=== PATIENT | female | born 1970 | race Caucasian/White ===

== ENCOUNTER 2020-11-06 12:19 | Emergency (ER) | payer MEDICAID ==
[~2020-11-06] VITALS: Ht 167.6 cm; Wt 95.5 kg
[2020-11-06 12:53] LABS: CLARITY URINE TURBID (CLEAR); COLOR URINE ORANGE (YELLOW); KETONES URINE NEGATIVE (NEGATIVE); LEUKOCYTE ESTERASE URINE 1+ (NEGATIVE); NITRITE URINE NEGATIVE (NEGATIVE); OCCULT BLOOD URINE 3+ (NEGATIVE); PH URINE >=9.0 (4.5-8.0); PROTEIN URINE 1+ (NEGATIVE); SPECIFIC GRAVITY URINE 1.022 (1.005-1.030)
[2020-11-06] MEDS ORDERED: PYR200 PO (13:36)
[2020-11-06] MEDS ORDERED: ACET-2708 PO (13:36)
[2020-11-06] MEDS ORDERED: SULF1TAB48 PO (13:36)
[2020-11-06 13:54] VITALS: BP 112/77
== END 2020-11-06 14:14 | disposition home or self-care (01) ==
LOC: ER 12:19 → EDSEX 12:19 → ER 14:14
DX: N39.0 Urinary tract infection, site not specified (principal)
CPT/HCPCS: 81003; 81025; 99283

== ENCOUNTER 2020-11-12 23:11 | Emergency (ER) | payer MEDICAID, OTHER ==
[~2020-11-12] VITALS: Ht 167.6 cm; Wt 97.0 kg
[~2020-11-12 23:11] MED LIST: ACET-2708 PO; PYR200 PO; SULF1TAB48 PO
[2020-11-12 23:51] VITALS: BP 127/84
[2020-11-13] MEDS ORDERED: MAGNESIUM CITRATE 300ML SOLUTION PO SCH (01:00)
[2020-11-13] MEDS ORDERED: MAGN296S70 MT (16:10)
== END 2020-11-13 00:49 | disposition home or self-care (01) ==
LOC: ER 23:11
DX: K59.00 Constipation, unspecified (principal)
CPT/HCPCS: 99282

== ENCOUNTER 2020-11-13 10:15 | Emergency (ER) | payer OTHER ==
[~2020-11-13] VITALS: Ht 167.6 cm; Wt 97.0 kg
[2020-11-13] MEDS ORDERED: MAGN296S70 MT (16:10)
[2020-11-13 16:26] VITALS: BP 110/16
== END 2020-11-13 16:27 | disposition home or self-care (01) ==
LOC: ER 10:15
DX: K59.00 Constipation, unspecified (principal); R10.30 Lower abdominal pain, unspecified; Z79.899 Other long term (current) drug therapy
CPT/HCPCS: 99282; Z7610

== ENCOUNTER 2022-07-29 08:50 | Emergency (ER) | payer MEDICAID, OTHER ==
[~2022-07-29] VITALS: Ht 167.6 cm; Wt 80.0 kg
[~2022-07-29 08:50] MED LIST changes: +MAGN296S70 MT
[2022-07-29 09:01] VITALS: BP 145/97
== END 2022-07-29 09:18 | disposition home or self-care (01) ==
LOC: ER 08:50
DX: Z00.00 Encounter for general adult medical examination without abnormal findings (principal); Z79.899 Other long term (current) drug therapy
CPT/HCPCS: 99281; Z7610